=== PATIENT | male | born 1970 | race Caucasian/White ===

== ENCOUNTER 2020-04-06 08:22 | Day surgery (SDC) | payer OTHER ==
[~2020-04-06 08:22] MED LIST: Lactated Ringers 1,000 ML IV SCH; ceFAZolin 2 GM in Premix Bag 1 BAG IV SCH
[2020-04-06] MEDS ORDERED: Propofol 200 MG/20 ML SDV ONE (08:38)
[2020-04-06] MEDS ORDERED: Lidocaine 2% 5 ML SDV ONE (08:38)
[2020-04-06] MEDS ORDERED: Ondansetron 4 MG/2 ML SDV ONE (08:38)
[2020-04-06] MEDS ORDERED: Midazolam 1 MG/ML 2 ML SDV ONE (08:38)
[2020-04-06] MEDS ORDERED: fentaNYL 250 MCG/5 ML SDV ONE (08:39)
[2020-04-06] MEDS ORDERED: Glycopyrrolate 0.2 MG/ML SDV ONE (08:57)
--- NOTE | 2020-04-06 09:11 | PCM.PREANE ---
Preanesthetic Assessment - Anesthesia/Transfusion/Family Hx Anesthesia History: Prior Anesthesia Without Reaction Family History of Anesthesia Reaction: No Transfusion History: No Prior Transfusion(s) - Review of Systems General: No Symptoms Pulmonary: No Symptoms Cardiovascular: No Symptoms Gastrointestinal: No Symptoms Neurological: No Symptoms Other: Reports: None - Physical Assessment NPO Status Date: 04/05/20 Vital Signs: Last Vital Signs Temp 97.5 F 04/06/20 08:25 Pulse 79 04/06/20 08:25 Resp 16 04/06/20 08:25 BP 119/83 04/06/20 08:25 Pulse Ox 98 04/06/20 08:25 Height: 6 ft Weight: 93.44 kg ASA Class: 2 Mental Status: Alert & Oriented x3 Airway Class: Mallampati = 2 Dentition: Reports: Normal Dentition ROM/Head Extension: Full Lungs: Clear to Auscultation, Normal Respiratory Effort Cardiovascular: Regular Rate, Regular Rhythm - Allergies Allergies/Adverse Reactions: Allergies Allergy/AdvReac Type Severity Reaction Status Date / Time No Known Allergies Allergy Verified 04/04/20 09:19 - Anesthesia Plan Pre-Op Medication Ordered: None - Acknowledgements Anesthesia Type Planned: General Anesthesia Pt an Appropriate Candidate for the Planned Anesthesia: Yes Alternatives and Risks of Anesthesia Discussed w Pt/Guardian: Yes Pt/Guardian Understands and Agrees with Anesthesia Plan: Yes Additional Comments: PMH: smoker, jere uses cpap PLAN: ga/lma PreAnesthesia Questionnaire HEENT History: Reports: None Cardiovascular History: Reports: None Respiratory History: Reports: Sleep Apnea Other Respiratory History: uses CPAP Gastrointestinal History: Reports: None Genitourinary History: Reports: None Musculoskeletal History: Reports: Fracture Other Musculoskeletal History: left ankle Neurological History: Reports: None Psychiatric History: Reports: None Endocrine/Metabolic History: Reports: None Hematologic History: Reports: None Immunologic History: Reports: None Oncologic (Cancer) History: Reports: None Dermatologic History: Reports: None - Infectious Disease History Infectious Disease History: Reports: Chicken Pox Other Infectious Disease History: when a child - Past Surgical History Head Surgeries/Procedures: Reports: None HEENT Surgical History: Reports: None Cardiovascular Surgical History: Reports: None GI Surgical History: Reports: None, Hernia Repair/Other Female Surgical History: Reports: None Male Surgical History: Reports: None Endocrine Surgical History: Reports: None Neurological Surgical History: Reports: None Musculoskeletal Surgical History: Reports: Arthroscopic Knee, Shoulder Surgery Oncologic Surgical History: Reports: None - HOME MEDS Home Medications: Home Meds Multivitamin [Daily Multiple Vitamin] 1 tab PO DAILY 10/27/15 [History] - CURRENT (IN HOUSE) MEDS Current Meds: Current Medications Lactated Ringer's (Ringers, Lactated) 1,000 mls @ 100 mls/hr IV ASDIRECTED CANDIDO Cefazolin Sodium/Dextrose 2 gm (/ Premix) 50 mls @ 100 mls/hr IV ONCALL CANDIDO Discontinued Medications Fentanyl (Sublimaze) Confirm Administered Dose 250 mcg .ROUTE .STK-MED ONE Stop: 04/06/20 08:40 Glycopyrrolate (Robinul) Confirm Administered Dose 0.2 mg .ROUTE .STK-MED ONE Stop: 04/06/20 08:58 Lidocaine (Xylocaine-Mpf 2%) Confirm Administered Dose 5 ml .ROUTE .STK-MED ONE Stop: 04/06/20 08:39 Midazolam HCl (Versed 1 Mg/Ml) Confirm Administered Dose 2 mg .ROUTE .STK-MED ONE Stop: 04/06/20 08:39 Ondansetron HCl (Zofran) Confirm Administered Dose 4 mg .ROUTE .STK-MED ONE Stop: 04/06/20 08:39 Propofol (Diprivan 20 Ml) Confirm Administered Dose 200 mg .ROUTE .STK-MED ONE Stop: 04/06/20 08:39
[2020-04-06] MEDS ORDERED: Bupivacaine 25%/EPINEPHrine/PF 30 ML ONE (10:04)
[2020-04-06] MEDS ORDERED: ceFAZolin 1 GM Vial ONE (10:27)
[2020-04-06] MEDS ORDERED: Sodium Chloride 0.9% 20 ML ONE (10:27)
--- NOTE | 2020-04-06 11:11 | PCM.OPNOTE ---
- General Post-Op/Procedure Note Date of Surgery/Procedure: 04/06/20 Operative Procedure(s): Right knee arthroscopy and partial medial meniscectomy Findings: Lateral compartment grade 1 changes tibial plateau, grade 0 changes femoral condyle, lateral meniscus intact Anterior cruciate ligament intact in the notch Medial compartment grade 1 changes tibial plateau, grade 0 changes femoral condyle, complex degenerative horizontal cleavage tear of the posterior third of the medial meniscus Patellofemoral joint small focal area of grade 2 changes of the patella and trochlear groove grade 0 changes Pre Op Diagnosis: Right knee medial meniscus tear Post-Op Diagnosis: Right knee medial meniscus tear Anesthesia Technique: General LMA Primary Surgeon: German Tellez Senior Policy Advisor: Nola Bustillos Senior Policy Advisor Was Necessary: Leg positioning during arthroscopy EBL in mLs: 5 Complications: None Free Text/Narrative:: Patient had MRI confirmed right knee complex medial meniscus tear with horizontal cleavage pattern. Patient had failed nonoperative management. We discussed the risks and benefits of surgery. All questions were answered. Patient consented to proceed with surgery. Patient was taken to the operating room. After adequate general anesthesia patient remained in a supine position. The right lower extremities prepped draped in usual sterile manner. Arthroscopy was performed with a superior medial drain portal medial parapatellar arthroscopy portal and accessory medial working portal. The diagnostic arthroscopy findings are noted above. Partial medial meniscectomy was performed with punches and a shaver back to a stable rim which was confirmed with probing. Instruments were removed from the joint, fluid expressed from the joint, local anesthetic injected into the portals and capsule but not the joint. Portal sites were closed with interrupted nylon sutures. Sterile dressing was applied and patient was accompanied the cover room in stable condition. Pain management: Ibuprofen, acetaminophen, hydrocodone. Venous thromboembolism prophylaxis: Not indicated for arthroscopy. Prophylactic antibiotics: Not indicated for outpatient procedure. Restrictions: Patient is weightbearing as tolerated on his right lower extremity with assistive device as needed. No restrictions. Patient should leave dressing on for 3 days and may remove and shower after dressing removal. He should not soak the incisions until seen back in clinic with sutures removed.
[2020-04-06] MEDS ORDERED: Acetaminophen 1,000 MG in Premix Bag 1 BAG IV ONE (11:44)
[2020-04-06] MEDS ORDERED: Ketorolac 30 MG/ML SDV IVPUSH ONE (11:44)
--- NOTE | 2020-04-06 12:13 | PCM.POSTAN ---
POST ANESTHESIA ASSESSMENT - MENTAL STATUS Mental Status: Alert, Oriented - VITAL SIGNS Vital Signs: Last Vital Signs Temp 97.3 F 04/06/20 12:01 Pulse 76 04/06/20 12:01 Resp 14 04/06/20 12:01 BP 134/83 04/06/20 12:01 Pulse Ox 98 04/06/20 12:01 - RESPIRATORY Respiratory Status: Respiratory Rate WNL, Airway Patent, O2 Saturation Stable - CARDIOVASCULAR CV Status: Pulse Rate WNL, Blood Pressure Stable - GASTROINTESTINAL GI Status: No Symptoms - POST OP HYDRATION Hydration Status: Adequate & Stable
--- NOTE | 2020-04-06 12:13 | PCM48HPAN ---
Post Anesthesia Note - EVALUATION WITHIN 48HRS OF ANESTHETIC Vital Signs in Normal Range: Yes Patient Participated in Evaluation: Yes Respiratory Function Stable: Yes Airway Patent: Yes Cardiovascular Function Stable: Yes Hydration Status Stable: Yes Pain Control Satisfactory: Yes Nausea and Vomiting Control Satisfactory: Yes Mental Status Recovered: Yes Vital Signs: Last Vital Signs Temp 97.3 F 04/06/20 12:01 Pulse 76 04/06/20 12:01 Resp 14 04/06/20 12:01 BP 134/83 04/06/20 12:01 Pulse Ox 98 04/06/20 12:01
[2020-04-06] MEDS ORDERED: oxyCODONE 5 MG Tab PO ONE (12:38)
[2020-04-06] MEDS ORDERED: oxyCODONE 5 MG Tab ONE (12:39)
[2020-04-06 12:47] VITALS: BP 124/84; PULSE 72
== END 2020-04-06 12:44 | disposition home or self-care (01) ==
LOC: MW.SDS 08:22
PROVIDERS: ATTEND Orthopaedic Surgery
DX: M23.321 Other meniscus derangements, posterior horn of medial meniscus, right knee (principal); F17.200 Nicotine dependence, unspecified, uncomplicated; G47.33 Obstructive sleep apnea (adult) (pediatric); Z98.890 Other specified postprocedural states; Z99.89 Dependence on other enabling machines and devices
CPT/HCPCS: 29881; A9270; J0131; J0690; J1885; J2001; J2250; J2405; J2704; J3010; J3490; J7120

== ENCOUNTER 2020-07-28 11:34 | Day surgery (SDC) | payer OTHER ==
[~2020-07-28 11:34] MED LIST changes: -ceFAZolin 2 GM in Premix Bag 1 BAG IV SCH
[2020-07-28] MEDS ORDERED: Midazolam 1 MG/ML 2 ML SDV ONE (11:43)
[2020-07-28] MEDS ORDERED: Propofol 200 MG/20 ML SDV ONE ×2 (11:43→13:31)
--- NOTE | 2020-07-28 12:23 | PCM.PREANE ---
Preanesthetic Assessment - Anesthesia/Transfusion/Family Hx Anesthesia History: Prior Anesthesia Without Reaction Family History of Anesthesia Reaction: No Transfusion History: No Prior Transfusion(s) Intubation History: Unknown - Review of Systems General: No Symptoms Pulmonary: No Symptoms Cardiovascular: No Symptoms Gastrointestinal: No Symptoms, Other (screening colonoscopy) Neurological: No Symptoms Other: Reports: None - Physical Assessment Vital Signs: Last Vital Signs Temp 36.4 C 07/28/20 11:36 Pulse 106 H 07/28/20 11:36 Resp 15 07/28/20 11:36 BP 119/61 07/28/20 11:36 Pulse Ox 97 07/28/20 11:36 Height: 6 ft Weight: 97.069 kg ASA Class: 2 Mental Status: Alert & Oriented x3 Airway Class: Mallampati = 3 Dentition: Reports: Normal Dentition, [place](s) (gold crowns upper (back)) Thyro-Mental Finger Breadths: 3 Mouth Opening Finger Breadths: 3 ROM/Head Extension: Full Lungs: Clear to Auscultation, Normal Respiratory Effort Cardiovascular: Regular Rate, Regular Rhythm - Allergies Allergies/Adverse Reactions: Allergies Allergy/AdvReac Type Severity Reaction Status Date / Time No Known Allergies Allergy Verified 07/22/20 10:47 - Blood Blood Available: No - Anesthesia Plan Pre-Op Medication Ordered: None - Acknowledgements Anesthesia Type Planned: MAC Pt an Appropriate Candidate for the Planned Anesthesia: Yes Alternatives and Risks of Anesthesia Discussed w Pt/Guardian: Yes Pt/Guardian Understands and Agrees with Anesthesia Plan: Yes PreAnesthesia Questionnaire HEENT History: Reports: None Cardiovascular History: Reports: None Respiratory History: Reports: Sleep Apnea Other Respiratory History: uses CPAP nightlt Gastrointestinal History: Reports: None Genitourinary History: Reports: BPH, Renal Calculus Musculoskeletal History: Reports: Fracture Other Musculoskeletal History: right hand and left ankle Neurological History: Reports: Concussion Psychiatric History: Reports: None Endocrine/Metabolic History: Reports: None Hematologic History: Reports: None Immunologic History: Reports: None Oncologic (Cancer) History: Reports: None Dermatologic History: Reports: None - Infectious Disease History Infectious Disease History: Reports: Chicken Pox Other Infectious Disease History: when a child - Past Surgical History Head Surgeries/Procedures: Reports: None HEENT Surgical History: Reports: None Cardiovascular Surgical History: Reports: None GI Surgical History: Reports: None Female Surgical History: Reports: None Male Surgical History: Reports: None Endocrine Surgical History: Reports: None Neurological Surgical History: Reports: None Musculoskeletal Surgical History: Reports: Arthroscopic Knee, Shoulder Surgery Other Musculoskeletal Surgeries/Procedures:: RTCR and biceps tendon repair right shoulder, bilateral knee arthroscopies Oncologic Surgical History: Reports: None - SUBSTANCE USE Tobacco Use Status *Q: Former Tobacco User Tobacco Use Within Last Twelve Months: No Recreational Drug Use History: No - HOME MEDS Home Medications: Home Meds Multivitamin 1 tab PO DAILY 07/22/20 [History] - CURRENT (IN HOUSE) MEDS Current Meds: Current Medications Lactated Ringer's (Ringers, Lactated) 1,000 mls @ 125 mls/hr IV ASDIRECTED [facility] Last Admin: 07/28/20 11:55 Dose: 125 mls/hr Documented by: Discontinued Medications Midazolam HCl (Midazolam 1 Mg/Ml 2 Ml Sdv) Confirm Administered Dose 2 mg .ROUTE .STK-MED ONE Stop: 07/28/20 11:44 Propofol (Propofol 200 Mg/20 Ml Sdv) Confirm Administered Dose 400 mg .ROUTE .STK-MED ONE Stop: 07/28/20 11:44
[2020-07-28 14:12] VITALS: PULSE 83
[2020-07-28 14:22] VITALS: BP 111/71
--- NOTE | 2020-07-28 14:31 | PCM.POSTAN ---
POST ANESTHESIA ASSESSMENT - MENTAL STATUS Mental Status: Alert, Oriented - VITAL SIGNS Vital Signs: Last Vital Signs Temp 36.0 C L 07/28/20 14:18 Pulse 83 07/28/20 14:18 Resp 14 07/28/20 14:18 BP 111/71 07/28/20 14:18 Pulse Ox 97 07/28/20 14:18 - RESPIRATORY Respiratory Status: Respiratory Rate WNL, Airway Patent, O2 Saturation Stable - CARDIOVASCULAR CV Status: Pulse Rate WNL, Blood Pressure Stable - GASTROINTESTINAL GI Status: No Symptoms - PAIN Pain Score: 0 - POST OP HYDRATION Hydration Status: Adequate & Stable - OBSERVATIONS Free Text/Narrative:: No anesthesia problems
--- NOTE | 2020-07-28 14:32 | PCM48HPAN ---
Post Anesthesia Note - EVALUATION WITHIN 48HRS OF ANESTHETIC Vital Signs in Normal Range: Yes Patient Participated in Evaluation: Yes Respiratory Function Stable: Yes Airway Patent: Yes Cardiovascular Function Stable: Yes Hydration Status Stable: Yes Pain Control Satisfactory: Yes Nausea and Vomiting Control Satisfactory: Yes Mental Status Recovered: Yes Vital Signs: Last Vital Signs Temp 36.0 C L 07/28/20 14:18 Pulse 83 07/28/20 14:18 Resp 14 07/28/20 14:18 BP 111/71 07/28/20 14:18 Pulse Ox 97 07/28/20 14:18 - COMMENTS/OBSERVATIONS Free Text/Narrative:: No anesthesia problems
--- NOTE | 2020-07-28 15:36 | PCM.OPNOTE ---
- General Post-Op/Procedure Note Date of Surgery/Procedure: 07/28/20 Operative Procedure(s): colonoscopy and polypectomy Findings: colon polyp diverticulosis dictation number [id number] Pre Op Diagnosis: screening colonoscopy Post-Op Diagnosis: colon polyp and diverticulosis Primary Surgeon: Howard Serrano Pathology: colon polyp Complications: None Condition: Good Free Text/Narrative:: Intake & Output 07/28/20 07/28/20 07/28/20 06:59 14:59 22:59 Intake Total 850 Balance 850
--- NOTE | 2020-07-28 22:27 | OR ---
SURGEON: DAWNA ANG MD DATE OF PROCEDURE: 07/28/2020 PREOPERATIVE DIAGNOSIS: Screening colonoscopy. POSTOPERATIVE DIAGNOSES: 1. Diverticulosis. 2. Colon polyp at approximately 12 cm. PROCEDURES PERFORMED: 1. Colonoscopy. 2. Hot snare polypectomy. LUG BREAKER AND WIRE PULLER: JULISSA Rondon resident caregiver, PGY-2. EXTENT OF COLONOSCOPY: To the cecum and terminal ileum. WITHDRAWAL TIME: 11 minutes. BOWEL PREP: Very good. LIMITATIONS: None. REASON FOR PROCEDURE: The patient is a pleasant 49-year-old gentleman. He has never had a colonoscopy before. He denies any blood in the stool. Denies any family history of colon cancer. OPERATION NARRATIVE: Physical examination was done. Risks, goals, and alternatives were again explained to the patient. The patient verbalized understanding and agreement of the same. The patient was connected to the appropriate monitoring devices and IV was started. EKG, pulse, pulse oximetry, blood pressure, and capnography were monitored throughout the procedure. Continuous oxygen and sedation were provided by the anesthesiologist. The patient was placed in left lateral decubitus position and sedation began. After adequate sedation was achieved, digital rectal exam was performed. No rectal masses or polyps were felt. Now, a well-lubricated Olympus colonoscope was entered in the rectum and advanced under direct visualization to the level of the cecum. Cecum was identified by both visual and anatomic landmarks. Photographs were taken of the cecal cap. Terminal ileum was also intubated. The scope was then slowly withdrawn in somewhat circular fashion looking at the color, texture, anatomy, and integrity of the mucosa from the cecum to the anal canal. The patient had some light liquid stool which was suctioned and irrigated out for good look of the mucosa. The patient did have some diverticulosis of the sigmoid colon. He also had a polyp at approximately 12 cm. This was removed with hot snare polypectomy. The scope was retroflexed in the rectum. He had some noninflamed internal hemorrhoids. Scope was completely removed and the procedure was terminated. ENDOSCOPIC DIAGNOSES: 1. Diverticulosis. 2. Colon polyp at 12 cm. RECOMMENDATIONS: Followup colonoscopy will depend on pathology, but most likely he will need another one in five years or sooner if he develops signs and symptoms such as change in bowel habits or blood in stool. JHONNY / MAKAYLA /[id number]
== END 2020-07-28 14:45 | disposition home or self-care (01) ==
LOC: MW.SDS 11:34
PROVIDERS: ATTEND Surgery
DX: Z12.11 Encounter for screening for malignant neoplasm of colon (principal); D12.6 Benign neoplasm of colon, unspecified; K57.30 Diverticulosis of large intestine without perforation or abscess without bleeding; K64.8 Other hemorrhoids; G47.30 Sleep apnea, unspecified; Z87.891 Personal history of nicotine dependence; Z87.442 Personal history of urinary calculi; Z98.890 Other specified postprocedural states
CPT/HCPCS: 45385; J2250; J2704; J7120; 00812; 88305